=== PATIENT | male | born 1975 | race Hispanic/Latino ===

== ENCOUNTER 2021-04-12 14:07 | Outpatient (CLI) | payer OTHER | END 2021-04-12 14:08 | disposition home or self-care (01) | LOC: SCSRAD 14:07 | PROVIDERS: ATTEND Family Medicine | DX: R06.02 Shortness of breath (principal) | CPT/HCPCS: 71046 ==

== ENCOUNTER 2022-02-05 10:22 | Outpatient (CLI) | payer BC | END 2022-02-05 10:23 | disposition home or self-care (01) | LOC: SCSRAD 10:22 | PROVIDERS: ATTEND Family Medicine | DX: M46.1 Sacroiliitis, not elsewhere classified (principal); M89.9 Disorder of bone, unspecified | CPT/HCPCS: 72220 ==

== ENCOUNTER 2022-02-26 14:07 | Outpatient (CLI) | payer BC | END 2022-02-26 14:08 | disposition home or self-care (01) | LOC: SCSRAD 14:07 | PROVIDERS: ATTEND Family Medicine | DX: S32.10XS Unspecified fracture of sacrum, sequela (principal); G95.89 Other specified diseases of spinal cord | CPT/HCPCS: 72220 ==